=== PATIENT | male | born 1985 | race Two or more races ===

== ENCOUNTER → 2021-11-15 | Emergency (ER) | payer OTHER ==
[~2021-11-15] VITALS: Ht 175.3 cm; Wt 113.4 kg
[~2021-11-15] MED LIST: GEN03OS OP
[2021-11-15 15:34] LABS: Basophils # (auto) 0.1 10 ^3/uL (0-0.2); Basophils % (auto) 0.6 % (0.0-2.0); Eosinophils # (auto) 0.2 10 ^3/uL (0-0.8); Eosinophils % (auto) 1.9 % (0.0-7.0); Hematocrit 43.5 % (41.0-53.0); Hemoglobin 14.5 g/dL (13.5-17.5); Lymphocytes # (auto) 2.3 10 ^3/uL (0.4-5.4); Lymphocytes % (auto) 25.4 % (10.0-50.0); Mean Corpuscular Hemoglobin 31.7 pg (28.0-32.0); Mean Corpuscular Hgb Conc. 33.4 g/dL (32.0-36.0); Mean Corpuscular Volume 94.9 fL (80.0-100.0); Monocytes # (auto) 0.7 10 ^3/uL (0-1.3); Monocytes % (auto) 7.9 % (0.0-12.0); Neutrophils # (auto) 5.9 10 ^3/uL (1.6-8.6); Neutrophils % (auto) 64.2 % (37.0-80.0); Red Blood Cells 4.59 10^6/uL (4.5-5.90); Red Cell Distribution Width 12.7 % (11.8-14.3); White Blood Cell 9.2 10^3/uL (4.4-10.8)
[2021-11-15 15:53] LABS: Albumin 3.9 g/dL (3.4-5.0); Calcium 9.2 mg/dL (8.5-10.1)
[2021-11-15 15:55] LABS: BUN/Creatinine Ratio 12.6
[2021-11-15 16:04] LABS: Bilirubin, Total 0.7 mg/dL (0.2-1.0); Total Protein 7.7 g/dL (6.4-8.2)
[2021-11-15 21:00] VITALS: BP 116/76
== END | disposition home or self-care (01) ==
LOC: ER 14:32
DX: R00.2 Palpitations (principal); F41.9 Anxiety disorder, unspecified; H10.32 Unspecified acute conjunctivitis, left eye
CPT/HCPCS: 36415; 71045; 80053; 84443; 84484; 85025; 93005

== ENCOUNTER 2023-04-16 23:24 | Inpatient (IN) | payer MEDICAID, OTHER ==
[~2023-04-16] VITALS: Ht 175.3 cm; Wt 88.6 kg
[~2023-04-16 23:24] MED LIST changes: -GEN03OS OP; +GENT0.3S10 OP
[2023-04-17] MEDS ORDERED: ACCU-CHEK COMFORT CURVE STRIP VI ONE
[2023-04-17 00:02] LABS: Basophils # (auto) 0 10 ^3/uL (0-0.2); Basophils % (auto) 0.3 % (0.0-2.0); Eosinophils # (auto) 0.2 10 ^3/uL (0-0.8); Eosinophils % (auto) 1.9 % (0.0-7.0); Hematocrit 43.2 % (41.0-53.0); Hemoglobin 14.6 g/dL (13.5-17.5); Lymphocytes # (auto) 3.5 10 ^3/uL (0.4-5.4); Lymphocytes % (auto) 42.1 % (10.0-50.0); Mean Corpuscular Hgb Conc. 33.9 g/dL (32.0-36.0); Mean Corpuscular Volume 97.4 fL (80.0-100.0); Monocytes # (auto) 0.6 10 ^3/uL (0-1.3); Monocytes % (auto) 6.7 % (0.0-12.0); Neutrophils # (auto) 4.1 10 ^3/uL (1.6-8.6); Nucleated Red Blood Cells % 0.1 %; Red Blood Cells 4.43 10^6/uL (4.5-5.90); Red Cell Distribution Width 12.9 % (11.8-14.3); White Blood Cell 8.4 10^3/uL (4.4-10.8)
[2023-04-17 00:06] VITALS: PULSE 108; RESP 22; O2SAT 95
[2023-04-17 00:21] LABS: Alanine Aminotransferase 62 U/L (7-40); Alkaline Phosphatase 70 U/L (46-116); Anion Gap 6 (5-15); BUN/Creatinine Ratio 12.5 (10.0-20.0); Blood Urea Nitrogen 15 mg/dL (9-23); Calcium 9.2 mg/dL (8.7-10.4); Carbon Dioxide 28 mmol/L (20-30); Chloride 105 mmol/L (98-107); Glucose 123 mg/dL (74-106); Potassium 3.9 mmol/L (3.5-5.1); Sodium 139 mmol/L (136-145)
[2023-04-17 00:22] LABS: Albumin 4.4 g/dL (3.2-4.8); Aspartate Aminotransferase 25 U/L (13-40); Bilirubin, Total 0.6 mg/dL (0.2-1.0); Total Protein 6.9 g/dL (5.7-8.2)
[2023-04-17 00:39] LABS: INR 0.98 (0.9-1.15); Partial Thromboplastin Time 24.4 SEC (24.5-34.5); Prothrombin Time 10.3 sec (9.3-11.8)
[2023-04-17 01:26] LABS: Urine Bacteria NONE SEEN /hpf (None Seen); Urine Blood Negative /uL (Negative); Urine Clarity Clear (Clear); Urine Color Yellow (Yellow); Urine Mucus FEW (None Seen); Urine Protein, UAD TRACE (Negative); Urine Specific Gravity 1.025 (1.001-1.035); Urine Urobilinogen Normal (Negative); Urine WBC 1 /hpf (0 - 3); Urine pH 5.5 (5.0-8.0)
[2023-04-17] MEDS ORDERED: levETIRAcetam 1000 mg/100ml 100 ML IV ONE (02:45)
[2023-04-17 07:40] VITALS: PULSE 76; RESP 14; O2SAT 97
[2023-04-17] MEDS ORDERED: ONDANSETRON HCL 4 MG/2 ML VIAL IV PRN (07:45)
[2023-04-17] MEDS ORDERED: LORazepam 2MG/ML-1ML VIAL IV PRN ×2 (07:45→21:45)
[2023-04-17] MEDS ORDERED: ACETAMINOPHEN 325 MG TAB PO PRN (07:45)
[2023-04-17] MEDS: levETIRAcetam 500 MG TAB PO SCH ×2 (10:11→22:33)
[2023-04-17 20:00] VITALS: PULSE 66; RESP 24; O2SAT 93
[2023-04-17 22:00] VITALS: BP 102/64; PULSE 66; RESP 24; TEMP 97.5; O2SAT 93
[2023-04-18 00:24] LABS: Amphetamine Screen, Urine Neg (NEGATIVE); Barbiturate Scree,Urine Neg (NEGATIVE); Benzodiazephine Screen, Urine Neg (NEGATIVE); Cannabinoid Screen, Urine Neg (NEGATIVE); Cocaine Screen, Urine Neg (NEGATIVE); Opiate Scree,Urine Neg (NEGATIVE); Phencyclidine Screen, Urine Neg (NEGATIVE)
[2023-04-18 05:00] VITALS: BP 102/52; PULSE 69; RESP 18; TEMP 97.5; O2SAT 96
[2023-04-18 05:47] LABS: Chloride 106 mmol/L (98-107); Potassium 4.2 mmol/L (3.5-5.1); Sodium 139 mmol/L (136-145)
[2023-04-18 05:48] LABS: Anion Gap 6 (5-15); Carbon Dioxide 27 mmol/L (20-30)
[2023-04-18 05:53] LABS: Blood Urea Nitrogen 9 mg/dL (9-23); Glucose 104 mg/dL (74-106)
[2023-04-18 09:18] VITALS: BP 122/57; PULSE 86; RESP 18; TEMP 98.3; O2SAT 97
[2023-04-18] MEDS: levETIRAcetam 500 MG TAB PO SCH ×2 (10:04→22:24)
[2023-04-18] MEDS: FOLIC ACID 1 MG, MULTIPLE VITAMIN 10 ML, MAGNESIUM SULF SDV 50% 8 MEQ, THIAMINE INJ 100... INJ SCH ×5 (13:01)
[2023-04-18 14:38] VITALS: BP 105/77; PULSE 62; RESP 17; TEMP 98.2; O2SAT 96
[2023-04-18 17:12] VITALS: BP_SYST 106; BP_SYST 99; BP_DIAS 68; BP_DIAS 73; PULSE 76; PULSE 83; RESP 18; TEMP 97.1; TEMP 98; O2SAT 96; O2SAT 97
[2023-04-19 05:00] VITALS: BP 110/57; PULSE 71; RESP 18; TEMP 97.5; O2SAT 96
[2023-04-19 09:00] VITALS: BP 122/63; PULSE 61; RESP 16; TEMP 97.9; O2SAT 98
[2023-04-19] MEDS ORDERED: LEVE500T40 PO (09:14)
[2023-04-19] MEDS: levETIRAcetam 500 MG TAB PO SCH (09:34)
[2023-04-19] MEDS: FOLIC ACID 1 MG, MULTIPLE VITAMIN 10 ML, MAGNESIUM SULF SDV 50% 8 MEQ, THIAMINE INJ 100... INJ SCH ×5 (12:00)
[2023-04-19 12:16] VITALS: BP 122/63; PULSE 61; RESP 16; TEMP 97.9; O2SAT 98
== END 2023-04-19 12:55 | disposition home or self-care (01) | DRG 53 ==
LOC: ER 23:24 → EDBD 23:24 → OVERFLOW 04-17 07:32 → CENTRAL 04-17 15:47
PROVIDERS: ADMIT Nurse Practitioner; ATTEND Family Medicine
DX: G40.409 Other generalized epilepsy and epileptic syndromes, not intractable, without status epilepticus (principal); F10.10 Alcohol abuse, uncomplicated; Z79.899 Other long term (current) drug therapy; Z86.011 Personal history of benign neoplasm of the brain; Z92.3 Personal history of irradiation; Z71.41 Alcohol abuse counseling and surveillance of alcoholic
CPT/HCPCS: 36415; 70450; 70551; 80048; 80053; 80307; 81001; 82962; 83735; 84484; 85025; 85610; 85730; 93005; 95819; 96365; G0378